=== PATIENT | female | born 1945 | race Caucasian/White ===

== ENCOUNTER 2021-02-07 08:39 | Day surgery (SDC) | payer MEDICARE, BC ==
[~2021-02-07 08:39] MED LIST: Lactated Ringers 1,000 ML IV SCH
[2021-02-07] MEDS ORDERED: fentaNYL 100 MCG/2 ML SDV ONE (10:25)
[2021-02-07] MEDS ORDERED: Propofol 200 MG/20 ML SDV ONE (10:25)
[2021-02-07 12:10] VITALS: BP 132/64; PULSE 56
--- NOTE | 2021-02-08 07:39 | OR ---
PRE-OPERATIVE DIAGNOSES: History of colon polyps. Last colonoscopy in 2014 revealed one polyp that was removed. POST-OPERATIVE DIAGNOSES: 1. Mild sigmoid diverticulosis. 2. Otherwise normal colon. PROCEDURE: Colonoscopy. ANESTHESIA: Monitored anesthesia care. BOWEL PREP: Good. Estela is a 75-year-old female was brought to the endoscopy suite after discussing risks and benefits of the procedure. Informed consent was obtained for conscious sedation and colonoscopy with or without biopsy and/or polypectomy. We also discussed possibility of missed lesions. Pre-procedure exam was unremarkable. IV, oxygen, and monitors were placed. The patient was placed in the left lateral decubitus position. Sedation was administered and a digital rectal exam was performed which was unremarkable. Colonoscope was passed into the rectum and slowly advanced all the way to the cecum. Cecum was viewed and photographed. The colonoscope was slowly withdrawn and the mucosa was closed observed in a direct circumferential manner. The ascending colon was unremarkable. The transverse colon was unremarkable. The descending colon was unremarkable. The sigmoid colon was remarkable for some mild diverticulosis. Retroflexion was performed and rectal mucosa was . Scope was removed. The patient tolerated the procedure well. The patient was monitored until that baseline status. Discharge instructions were reviewed and the patient was discharged in good condition. COMPLICATIONS: None. TOTAL TIME: 13 minutes. ESTIMATED BLOOD LOSS: None. RECOMMENDATIONS/FOLLOW-UP: Given her normal colon at this time, she could consider repeat again in 5 years given her history of polyps. This can depend on her personal preference and health status at that time. I would like to kindly thank Dr. Lopez for this referral. DMB: 02/07/2021 12:39:54 MODL: 02/07/2021 19:26:01 /[id number]
== END 2021-02-07 12:59 | disposition home or self-care (01) ==
LOC: VM.SDS 08:39
PROVIDERS: ATTEND Family Medicine
DX: Z12.11 Encounter for screening for malignant neoplasm of colon (principal); K57.30 Diverticulosis of large intestine without perforation or abscess without bleeding; I10 Essential (primary) hypertension; F41.9 Anxiety disorder, unspecified; E78.00 Pure hypercholesterolemia, unspecified; K21.9 Gastro-esophageal reflux disease without esophagitis; I49.5 Sick sinus syndrome; G47.33 Obstructive sleep apnea (adult) (pediatric); E55.9 Vitamin D deficiency, unspecified; Z98.890 Other specified postprocedural states; Z86.010 Personal history of colon polyps; Z79.899 Other long term (current) drug therapy; Z88.8 Allergy status to other drugs, medicaments and biological substances
CPT/HCPCS: 00812; J2704; J3010; J7120